=== PATIENT | female | born 1945 | race Two or more races ===

== ENCOUNTER → 2018-04-15 | Outpatient (CLI) | payer OTHER | END | disposition home or self-care (01) | LOC: SONOGRAMA 08:23 | DX: R10.84 Generalized abdominal pain (principal); N28.1 Cyst of kidney, acquired ==

== ENCOUNTER 2019-08-24 07:39 | Outpatient (CLI) | payer OTHER | END 2019-08-24 07:45 | disposition home or self-care (01) | LOC: RAD 07:39 | DX: N63.11 Unspecified lump in the right breast, upper outer quadrant (principal); M40.47 Postural lordosis, lumbosacral region; M12.88 Other specific arthropathies, not elsewhere classified, other specified site; Z12.31 Encounter for screening mammogram for malignant neoplasm of breast; Z87.898 Personal history of other specified conditions ==

== ENCOUNTER 2021-06-07 08:29 | Outpatient (CLI) | payer OTHER | END 2021-06-07 08:41 | disposition home or self-care (01) | LOC: RAD 08:29 | PROVIDERS: ATTEND Internal Medicine Cardiovascular Disease | DX: M54.5 Low back pain (principal); M19.09 Primary osteoarthritis, other specified site; M25.551 Pain in right hip; M79.671 Pain in right foot ==